=== PATIENT | male | born 1965 | race Caucasian/White ===

== ENCOUNTER 2024-02-21 06:14 | Day surgery (SDC) | payer BC ==
[2024-02-15 16:27] LABS: BASOPHILS # (AUTO) 0.1 X10'3 (0-0.2); BASOPHILS % (AUTO) 0.9 % (0-1); EOSINOPHILS # (AUTO) 0.2 X10'3 (0-0.9); EOSINOPHILS % (AUTO) 2.1 % (0-6); HEMATOCRIT 39.1 % (42.0-52.0); LYMPHOCYTES # (AUTO) 2.7 X10'3 (1.1-4.8); LYMPHOCYTES % (AUTO) 36.9 % (21-51); MEAN CORPUSCULAR HEMOGLOBIN 31.1 PG (27.0-31.0); MEAN CORPUSCULAR HGB CONC 33.3 g/dL (33.0-36.5); MEAN CORPUSCULAR VOLUME 93.6 FL (78-98); MEAN PLATELET VOLUME 7.9 FL (7.4-10.4); MONOCYTES # (AUTO) 0.6 X10'3 (0-0.9); MONOCYTES % (AUTO) 8.4 % (2-12); NEUTROPHILS # (AUTO) 3.8 X10'3 (1.8-7.7); NEUTROPHILS % (AUTO) 51.7 % (42-75); PLATELET COUNT 240 X10'3 (140-440); RED BLOOD COUNT 4.18 X10'6 (4.70-6.10); RED CELL DISTRIBUTION WIDTH 13.8 % (11.5-14.5); WHITE BLOOD COUNT 7.3 X10'3 (4.5-11.0)
[2024-02-15 16:46] LABS: ALANINE AMINOTRANSFERASE 26 U/L (12-78); ALBUMIN 4.2 G/DL (3.4-5.0); ALBUMIN/GLOBULIN RATIO 1.2 (1.1-1.5); ALKALINE PHOSPHATASE 54 IU/L (46-116); ANION GAP 7 (8-16); ASPARTATE AMINO TRANSFERASE 15 U/L (10-37); BILIRUBIN,TOTAL 0.5 MG/DL (0.1-1.0); BLOOD UREA NITROGEN 15 MG/DL (7-18); BUN/CREATININE RATIO 15.5 (10.0-20.0); CALCIUM 8.9 MG/DL (8.5-10.1); CHLORIDE 103 MMOL/L (99-107); CREATININE 0.97 MG/DL (0.60-1.10); GLUCOSE 92 MG/DL (70-104); POTASSIUM 4.2 MMOL/L (3.5-5.1); SODIUM 140 MMOL/L (135-145); TOTAL CARBON DIOXIDE 30.5 MMOL/L (24-32); TOTAL PROTEIN 7.6 G/DL (6.4-8.2); eGFR 80 ML/MIN
[~2024-02-21] VITALS: Ht 188 cm; Wt 80.3 kg
[2024-02-21] VITALS (7 sets, daily range): BP systolic 106–119; BP diastolic 63–76; PULSE 64–71; RESP 9–16; TEMP 97.8; O2SAT 95–100
[~2024-02-21 06:14] MED LIST: ESCI20TA39 PO; GABA-1405 PO; IBUP-864 PO; METH-798 PO; THEANINE; TRAZ150T78 PO; VITAMIN B 6; VITAMIN D 3; [UNRECOGNIZED DRUG - REMARK]; famotidine 20mg tablet PO ONE; ringers solution, lacted 1,000 ML IV SCH
[2024-02-21] MEDS: ceFAZolin 2gm in dextrose, iso 50 ML IV ONE (06:26)
[2024-02-21] MEDS ORDERED: BUPIVAcaine/PF 2.5mg/ml (0.25%) 10ml vial ONE (09:35)
[2024-02-21] MEDS ORDERED: LIDOcaine 2% (20mg/ml) 5ml vial ONE ×2 (09:35)
[2024-02-21] MEDS ORDERED: sevoflurane 250ml liquid IH ONE (09:40)
[2024-02-21] MEDS ORDERED: ondansetron/PF 4mg/2ml inj ONE (09:45)
[2024-02-21] MEDS ORDERED: LIDOcaine 1%/PF 5ML 10 MG/ML VIAL ONE (09:45)
[2024-02-21] MEDS ORDERED: fentaNYL/PF 50MCG/1 ML 2ML syringe ONE (09:45)
[2024-02-21] MEDS ORDERED: propofol inj 20 ML IV ONE (09:46)
[2024-02-21] MEDS ORDERED: dexamethasone sod phosphate 4mg/ml inj. ONE (09:46)
[2024-02-21] MEDS ORDERED: ketorolac trometh 30MG/ML vial 30 MG/ML VIAL ONE (10:08)
== END 2024-02-21 11:26 | disposition home or self-care (01) ==
LOC: PAS 06:14
PROVIDERS: ATTEND Orthopaedic Surgery Hand Surgery
DX: M72.0 Palmar fascial fibromatosis [Dupuytren] (principal); I45.2 Bifascicular block; E78.5 Hyperlipidemia, unspecified; G47.33 Obstructive sleep apnea (adult) (pediatric); Z87.891 Personal history of nicotine dependence; Z79.1 Long term (current) use of non-steroidal anti-inflammatories (NSAID); Z79.891 Long term (current) use of opiate analgesic; Z79.899 Other long term (current) drug therapy; Z98.890 Other specified postprocedural states; Z88.8 Allergy status to other drugs, medicaments and biological substances; Z81.8 Family history of other mental and behavioral disorders
CPT/HCPCS: 26123; 36415; 80053; 82948; 85025; 93005; A6222; J0690; J1100; J1885; J2003; J2405; J2704; J3010; J3490; J7030; J7120; Z7506; Z7512; A4215; A4618; A6449; A7000